=== PATIENT | female | born 1990 | race Caucasian/White ===

== ENCOUNTER 2019-11-28 06:38 | Observation (INO) | payer MEDICAID ==
[~2019-11-28] VITALS: Ht 152.4 cm; Wt 68.0 kg
[2019-11-28] MEDS ORDERED: PNV1TABL76 PO (07:11)
[2019-11-28] MEDS ORDERED: FERR325T6 PO (07:11)
[2019-11-28] MEDS ORDERED: TERBUTALINE SULFATE 1MG/ML VIAL SUBCUT PRN (07:30)
[2019-11-28] MEDS ORDERED: DEXT 5%/LACTATED RINGERS 1,000 ML IV SCH (07:30)
[2019-11-28] MEDS ORDERED: BETAMETHASONE ACET/BETAMET 30 MG/5 ML VIAL IM ONE (07:30)
[2019-11-28 08:33] LABS: CLARITY URINE CLOUDY (CLEAR); COLOR URINE YELLOW (YELLOW); KETONES URINE NEGATIVE (NEGATIVE); LEUKOCYTE ESTERASE URINE 2+ (NEGATIVE); NITRITE URINE NEGATIVE (NEGATIVE); OCCULT BLOOD URINE NEGATIVE (NEGATIVE); PH URINE >=9.0 (4.5-8.0); PROTEIN URINE NEGATIVE (NEGATIVE); SPECIFIC GRAVITY URINE 1.015 (1.005-1.030)
[2019-11-28] MEDS ORDERED: CEFAZOLIN 2,000 MG in DEXT 5% WATER 100 ML IV NR (09:30)
== END 2019-11-28 10:40 | disposition home or self-care (01) ==
LOC: 8 EST LDRP 06:38
PROVIDERS: ADMIT Obstetrics & Gynecology; ATTEND Obstetrics & Gynecology
DX: O26.893 Other specified pregnancy related conditions, third trimester (principal); R10.30 Lower abdominal pain, unspecified; Z3A.31 31 weeks gestation of pregnancy
CPT/HCPCS: 76805; 81003; 82731; 87077; 87086; 87186; 96361; 96365; 96372; 99281; G0378; J0690; J0702; J3105; J7060; 59412; 96360